=== PATIENT | male | born 1980 | race Caucasian/White ===

== ENCOUNTER 2023-04-01 09:53 | Emergency (ER) | payer MEDICAID, OTHER ==
[~2023-04-01] VITALS: Ht 177.8 cm; Wt 80.0 kg
[2023-04-01 09:55] VITALS: O2SAT 97
[2023-04-01] MEDS: ACETAMINOPHEN 325MG TABLET PO ONE (10:52)
[2023-04-01] MEDS: METHOCARBAMOL 500MG TABLET PO ONE (10:52)
[2023-04-01] MEDS: ONDANSETRON 4MG ODT PO ONE (10:52)
[2023-04-01] MEDS ORDERED: MORPHINE SULFATE 10 MG/ML CPJ (NOT FOR IM USE) IM ONE (12:00)
[2023-04-01] MEDS ORDERED: METH-653 MT (12:57)
[2023-04-01] MEDS ORDERED: TOPUD PO (12:57)
[2023-04-01] MEDS ORDERED: LIDO1ADH23 TP (12:57)
[2023-04-01] MEDS ORDERED: IBUP-2028 MT (12:57)
[2023-04-01] MEDS: KETOROLAC 60MG/2ML VIAL IM ONE (13:06)
[2023-04-01] MEDS: MORPHINE SULFATE 10 MG/ML CPJ (NOT FOR IM USE) IM NR (13:06)
[2023-04-01 13:31] VITALS: BP 120/76; PULSE 68; RESP 20; TEMP 98
== END 2023-04-01 13:32 | disposition home or self-care (01) ==
LOC: ER 09:53
DX: M79.662 Pain in left lower leg (principal); M25.562 Pain in left knee; R55 Syncope and collapse; E78.00 Pure hypercholesterolemia, unspecified
CPT/HCPCS: 73562; 73590; 70450; 72125; 72131; 96372; 99285; Q0162; J1885; J2270; Z7610 ×3; L1830; 29505